=== PATIENT | female | born 1960 | race Caucasian/White ===

== ENCOUNTER 2017-04-11 16:28 | Emergency (ER) | payer OTHER ==
[2017-04-11 16:53] VITALS: BP 167/84; PULSE 67; RESP 18; TEMP 98.7; O2SAT 96
--- NOTE | 2017-04-11 17:10 | C.PDOC ---
History Of Present Illness Patient is a 57 y/o F with hx of cavernous hemangioma, presenting with 1 day history of L sided headache. She reports L sided headache that is radiating down into her L neck. She reports that the headache was gradual onset and is not the worst headache of her life. She denies vision changes, weakness, numbness. Time Seen by Provider: 04/11/17 17:09 Chief Complaint (Nursing): Headache Past Medical History Vital Signs: Last Vital Signs Temp 98.7 F 04/11/17 16:53 Pulse 67 04/11/17 16:53 Resp 18 04/11/17 16:53 BP 167/84 H 04/11/17 16:53 Pulse Ox 96 04/11/17 18:25 - Medical History PMH: HTN Family History: States: Unknown Family Hx - Social History Hx Tobacco Use: No Hx Alcohol Use: No Hx Substance Use: No - Immunization History Hx Tetanus Toxoid Vaccination: No Hx Influenza Vaccination: No Hx Pneumococcal Vaccination: No Review Of Systems Constitutional: Negative for: Fever, Chills ENT: Negative for: Ear Pain, Throat Pain Cardiovascular: Negative for: Chest Pain, Palpitations, Edema, Light Headedness Respiratory: Negative for: Cough, Shortness of Breath, SOB with Excertion, Wheezing Gastrointestinal: Negative for: Nausea, Vomiting, Abdominal Pain, Diarrhea, Constipation Genitourinary: Negative for: Dysuria Musculoskeletal: Negative for: Neck Pain Neurological: Positive for: Headache. Negative for: Weakness, Numbness, Incoordination, Confusion, Seizures, Altered Mental Status, Dizziness Physical Exam - Physical Exam Appears: Well, Non-toxic, No Acute Distress Skin: Normal Color, Warm, Dry Head: Atraumatic, Normacephalic Eye(s): bilateral: Normal Inspection, PERRL, EOMI Ear(s): Bilateral: Normal Nose: Normal Oral Mucosa: Moist Tongue: Normal Appearing Lips: Normal Appearing Teeth: Normal Dentition Gingiva: Normal Appearing Throat: Normal, No Erythema, No Exudate, No Drooling, No Mass Neck: Normal, Supple Chest: Symmetrical Cardiovascular: Rhythm Regular Respiratory: Normal Breath Sounds, No Rales, No Rhonchi, No Wheezing Gastrointestinal/Abdominal: Soft, No Tenderness, No Mass, No Distention Back: Normal Inspection Extremity: Normal ROM Neurological/Psych: Oriented x3, Normal Speech, Normal Cranial Nerves, Normal Motor, Normal Sensation Gait: Steady ED Course And Treatment O2 Sat by Pulse Oximetry: 96 Medical Decision Making Medical Decision Making: Patient has mild headache with no neuro deficits. Due to hx, will get CT head to r/o worsening cavernous hemangioma. Will give tylenol for pain. CT head shows "5 mm hyperdense focus re-identified within the right temporal lobe consistent with history of cavernoma." After medication patient reports that headache is resolved. She is also requesting refill of her BP medication. She was instructed to follow-up with neurology. Disposition - Disposition Referrals: Obie Beyer MD [Staff Provider] - [facility] [Outside] Disposition: HOME/ ROUTINE Disposition Time: 18:22 Condition: FAIR Additional Instructions: Take naproxen as needed for pain. Return to ED if condition worsens. Follow- up with [facility] and neurology Prescriptions: amLODIPine [Norvasc] 5 mg PO DAILY #30 tab Ibuprofen [Motrin] 600 mg PO Q6 #20 tab Forms: Gen Discharge Inst Korean Print Language: ESTONIAN - Clinical Impression Clinical Impression: Cavernous hemangioma of brain
--- NOTE | 2017-04-11 17:55 | CT ---
PROCEDURE: CT HEAD WITHOUT CONTRAST. HISTORY: head injury COMPARISON: Brain MRI without contrast performed 01/27/16, head CT without contrast performed 01/23/16 TECHNIQUE: Axial computed tomography images were obtained through the head/brain without intravenous contrast. Radiation dose: Total exam DLP = 745.45 mGy-cm. This CT exam was performed using one or more of the following dose reduction techniques: Automated exposure control, adjustment of the mA and/or kV according to patient size, and/or use of iterative reconstruction technique. FINDINGS: HEMORRHAGE: No intracranial hemorrhage. BRAIN: No mass effect or edema. 5 mm hyperdense focus in the right temporal lobe consistent with history of cavernoma. Bilateral basal ganglia calcifications. The finley-white matter differentiation appears intact. Please note that MRI with diffusion imaging is more sensitive in the detection of acute ischemic event. VENTRICLES: No hydrocephalus. CALVARIUM: Unremarkable. PARANASAL SINUSES: Unremarkable as visualized. No significant inflammatory changes. MASTOID AIR CELLS: Unremarkable as visualized. No inflammatory changes. OTHER FINDINGS: None. IMPRESSION: 5 mm hyperdense focus re-identified within the right temporal lobe consistent with history of cavernoma.
== END 2017-04-11 18:45 | disposition home or self-care (01) ==
LOC: C.ER 16:28
DX: D18.09 Hemangioma of other sites (principal)
CPT/HCPCS: 70450; 96372; 99283; J1885